=== PATIENT | male | born 1960 | race Caucasian/White ===

== ENCOUNTER 2017-10-03 08:26 | Emergency (ER) | payer OTHER ==
[~2017-10-03] VITALS: Ht 175.3 cm; Wt 81.6 kg
[2017-10-03 09:21] LABS: BASOPHILS # (AUTO) 0.1 (0.0-0.1); BASOPHILS % 1.2 % (0.0-1.0); EOSINOPHILS # (AUTO) 0.3 (0.0-0.4); EOSINOPHILS % 3.6 % (0.0-6.0); HEMATOCRIT 43.9 % (38.2-49.6); HEMOGLOBIN 14.9 g/dL (14.0-18.0); LYMPHOCYTES # (AUTO) 2.5 (1.0-3.2); LYMPHOCYTES % 28.7 % (18.0-39.1); MEAN CORPUSCULAR HEMOGLOBIN 29.9 pg (28-32); MEAN CORPUSCULAR HGB CONC 33.9 g/dL (31-35); MEAN CORPUSCULAR VOLUME 88.2 fL (81-99); MONOCYTES # (AUTO) 0.8 (0.2-0.8); MONOCYTES % 9.2 % (4.4-11.3); NEUTROPHILS # (AUTO) 4.9 (2.1-6.9); NEUTROPHILS % 57.2 % (38.7-80.0); PLATELET COUNT 229 x10e3/uL (140-360); RED BLOOD COUNT 4.98 x10e6/uL (4.3-5.7); RED CELL DISTRIBUTION WIDTH 13.3 % (11.7-14.4)
[2017-10-03 09:31] LABS: ANION GAP 11.1 mmol/L (8-16); BLOOD UREA NITROGEN 13 mg/dL (7-26); BUN/CREATININE RATIO 13 (6-25); CARBON DIOXIDE 29 mmol/L (22-29); CHLORIDE 102 mmol/L (98-107); CREATININE, SERUM 0.98 mg/dL (0.72-1.25); EST GLOMERULAR FILTRATION RATE > 60 ML/MIN (60-); GLUCOSE 98 mg/dL (74-118); POTASSIUM 4.1 mmol/L (3.5-5.1); SODIUM 138 mmol/L (136-145)
--- NOTE | 2017-10-03 09:57 | Diagnostic Imaging Report ---
Toes right CPT code: 38767 Indication: 2 weeks of swelling/redness of the great toe. Technique: Three views of the first toe obtained without comparison. Findings: Soft tissue erosion at the medial aspect of the toe at the base of the proximal phalanx. There is no evidence of fracture, dislocation, focal demineralization or periosteal new bone formation. No focal osseous lesions of the great toe. There are mild degenerative changes of the first MTP. Remainder of the visualized osseous structures are unremarkable. No radiopaque foreign body in the soft tissues. IMPRESSION: No radiographic evidence of osteomyelitis. Bone scan and MRI are more sensitive modalities to detect osteomyelitis. Signed by: Dr. Cody Blake MD on 10/03/2017 9:53 AM
== END 2017-10-03 10:30 | disposition home or self-care (01) ==
LOC: ER 08:26
DX: M79.674 Pain in right toe(s) (principal); L03.031 Cellulitis of right toe; I10 Essential (primary) hypertension; F17.210 Nicotine dependence, cigarettes, uncomplicated
CPT/HCPCS: 36415; 80048; 85025; 99283

== ENCOUNTER 2020-05-02 11:46 | Emergency (ER) | payer OTHER ==
[~2020-05-02] VITALS: Ht 175.3 cm; Wt 83.9 kg
--- OUTSIDE RECORDS SUMMARY | 2020-05-02 11:56 | XMS REPORT | Continuity of Care Document ---
Author Author [facility] t Organization [facility] Address [address] [place] [address] Phone Unavailable Care Team Providers Care Tire Bagger Name Role Phone WERO LOW, Irish BRYANT PCP Nahomi WINSTON Attphyoxana Unavailable Problems This patient has no known problems. Allergies, Adverse Reactions, Alerts This patient has no known allergies or adverse reactions. Social History Social Habit Start Date Stop Date Quantity Comments Source History SDOH Alcohol Std Drinks [facility] History SDOH Alcohol Binge [facility] Sex Assigned At [facility] Tobacco use and exposure 2018-07-10 00:00:00 2018-07-10 00:00:00 Neve r used [facility] Alcohol intake 2018-07-10 00:00:00 2018-07-10 00:00:00 Current non-drinker of alcohol (finding) [facility] History SDOH Alcohol Frequency 2018-07-10 00:00:00 2018-07-10 00:00:0 0 1 [facility] Smoking Status Start Date Stop Date Source Current every day smoker 2018-07-10 00:00:00 [facility] Medications This patient has no known medications. Immunizations Ordered Immunization Name Filled Immunization Name Date Status Comments Source Tdap 2018-07-10 00:00:00 Completed [place] Procedures This patient has no known procedures. Plan of Care Planned Activity Planned Date Details Comments Source Future Scheduled Test 2020-01-13 00:00:00 INFLUENZA VACCINE [code = INFLUENZA VACCINE] [facility] Future Scheduled Test 2011-09-23 00:00:00 COLONOSCOPY SCREEN ING [code = COLONOSCOPY SCREENING] [facility] Future Scheduled Test 2011-09-23 00:00:00 SHINGLES VACCINES (#1) [code = SHINGLES VACCINES (#1)] [facility]ega Encounters Start Date/Time End Date[facility] ID Source 2017-10-03 08:26:00 2017-10-03 10:30:00 Departed Emergency Room ER JULIO WINSTON [facility] [id number] [facility] Results Test Description Test Time Test Comments Results Result Comments Source Sodium Level 2017-10-03 09:33:00 Test Item Sodium Level (test code = 2951-2) 138 136-145 [facility]Pot[facility] [id number] 09:33:00* Test Item Value Reference Range Interpretation Comments Potassium Level (test code = 2823-3) 4.1 3.5-5.1 [facility] HospitalChloride [id number] 09:33:00* Test Item Value Reference Range Interpretation Comments Chloride Level (test code = 2075-0) 102 98-107 [facility] HospitalCarbon Dioxide [id number] 09:33:00* Test Item Value Reference Range Interpretation Comments Carbon Dioxide Level (test code = 2028-9) 29 22-29 [facility] HospitalAnion [id number] 09:33:00* Test Item Value Reference Range Interpretation Comments Anion Gap (test code = 36646-2) 11.1 8-16 [facility] HospitalBlood Urea [id number] 09:33:00* Test Item Value Reference Range Interpretation Comments Blood Urea Nitrogen (test code = 3094-0) 13 7- [facility] HospitalCreatinine2018-04-22 09:33:00* Test Item Value Reference Range Interpretation Comments Creatinine (test code = 2160-0) 0.98 0.72-1.25 [facility] HospitalBUN/Creatinine Mompl2683-13-99 09:33:00* Test Item Value Reference Range Interpretation Comments BUN/Creatinine Ratio (test code = 3097-3) 13 6- [facility] HospitalEstimat Glomerular Filtration Rate 2017-10-03 09:33:00* Test Item Value Reference Range Interpretation Comments Estimat Glomerular Filtration Rate (test code = 12339-5) 60- >60 Ranges were taken from the National Kidney Disease Education Program and the [facility] [employer] literature.Reference ranges:60 or greater: Fpkbca80-32 ( for 3 consecutive months): Chronic kidney disease 15 or less: Kidney failureTexas Health [facility] Memorial HospitalGlucose Fzbjm5430-78-22 09:33:00* Test Item Value Reference Range Interpretation Comments Glucose Level (test code = VVM9085) 98 74-118 [facility] HospitalCalcium Tmyzm9375-34-91 09:33:00* Test Item Value Reference Range Interpretation Comments Calcium Level (test code = 67347-5) 10.0 8.4-10.2 [facility] HospitalWhite Blood [id number] 09:22:00* Test Item Value Reference Range Interpretation Comments White Blood Count (test code = 6690-2) 8.57 4.8-10.8 [facility] HospitalRed Blood [id number] 09:22:00* Test Item Value Reference Range Interpretation Comments Red Blood Count (test code = 789-8) 4.98 4.3-5.7 [facility] HospitalHemoglobin2018-04-22 09:22:00* Test Item Value Reference Range Interpretation Comments Hemoglobin (test code = 49227-2) 14.9 14.0-18.0 [facility] HospitalHematocrit2018-04-22 09:22:00* Test Item Value Reference Range Interpretation Comments Hematocrit (test code = 4544-3) 43.9 38.2-49.6 [facility] HospitalMean Corpuscular Kvpmmt6429-54-05 09:22:00* Test Item Value Reference Range Interpretation Comments Mean Corpuscular Volume (test code = 787-2) 88.2 81-99 [facility] HospitalMean Corpuscular Hddiqfqier3051-33-34 09:22:00* Test Item Value Reference Range Interpretation Comments Mean Corpuscular Hemoglobin (test code = 785-6) 29.9 28-32 [facility] HospitalMean Corpuscular Hemoglobin Concent 2017-10-03 09:22:00* Test Item Value Reference Range Interpretation Comments Mean Corpuscular Hemoglobin Concent (test code = 786-4) 33.9 31-35 [facility] HospitalRed Cell Distribution [id number] 09:22:00* Test Item Value Reference Range Interpretation Comments Red Cell Distribution Width (test code = 08024-2) 13.3 11.7 -14.4 [facility] HospitalPlatelet [id number] 09:22:00* Test Item Value Reference Range Interpretation Comments Platelet Count (test code = 777-3) 229 140-360 [facility] HospitalNeutrophils (%) (Auto)2017-10-03 09:22:00 * Test Item Value Reference Range Interpretation Comments Neutrophils (%) (Auto) (test code = 34747-5) 57.2 38.7-80.0 [facility] HospitalLymphocytes (%) (Auto)2017-10-03 09:22:00 * Test Item Value Reference Range Interpretation Comments Lymphocytes (%) (Auto) (test code = 736-9) 28.7 18.0-39.1 [facility] HospitalMonocytes (%) (Auto)2017-10-03 09:22:00* Test Item Value Reference Range Interpretation Comments Monocytes (%) (Auto) (test code = 5905-5) 9.2 4.4-11.3 [facility] HospitalEosinophils (%) (Auto)2017-10-03 09:22:00 * Test Item Value Reference Range Interpretation Comments Eosinophils (%) (Auto) (test code = 713-8) 3.6 0.0-6.0 [facility] HospitalBasophils (%) (Auto)2017-10-03 09:22:00* Test Item Value Reference Range Interpretation Comments Basophils (%) (Auto) (test code = 706-2) 1.2 0.0-1.0 H [facility] HospitalIM GRANULOCYTES %2017-10-03 09:22:00* Test Item Value Reference Range Interpretation Comments IM GRANULOCYTES % (test code = IM GRANULOCYTES %) 0.1 0.0- 1.0 [facility] HospitalNeutrophils # (Auto)2017-10-03 09:22:00* Test Item Value Reference Range Interpretation Comments Neutrophils # (Auto) (test code = 751-8) 4.9 2.1-6.9 [facility] HospitalLymphocytes # (Auto)2017-10-03 09:22:00* Test Item Value Reference Range Interpretation Comments Lymphocytes # (Auto) (test code = 18825-2) 2.5 1.0-3.2 [facility] HospitalMonocytes # (Auto)2017-10-03 09:22:00* Test Item Value Reference Range Interpretation Comments Monocytes # (Auto) (test code = 742-7) 0.8 0.2-0.8 [facility] HospitalEosinophils # (Auto)2017-10-03 09:22:00* Test Item Value Reference Range Interpretation Comments Eosinophils # (Auto) (test code = 711-2) 0.3 0.0-0.4 [facility] HospitalBasophils # (Auto)2017-10-03 09:22:00* Test Item Value Reference Range Interpretation Comments Basophils # (Auto) (test code = 704-7) 0.1 0.0-0.1 [facility] HospitalAbsolute Immature Granulocyte (auto 2017-10-03 09:22:00* Test Item Value Reference Range Interpretation Comments Absolute Immature Granulocyte (auto (nazario t code = Absolute Immature Granulocyte (auto) 0.01 0-0.1 [facility] HospitalTOES RIGHT MIN [address] [facility] [address] [address] Patient Name: CHARIS ENGEL MR #: [id number] : 1960 Age/Sex: 57/M Req #: [id number] Adm Physician: Ordered by: JULIO WINSTON MD Report #: [id number] Location: ER Room/Bed: Procedure: [id number] DX/TOES RIGHT MIN 2 VIEWS Ex am Date: 10/03/17 Exam Time: 934 REPORT STATUS : Signed Toes right CPT code: 23356 Indication: 2 weeks of swelling /redness of the great toe. Technique: Three views of the first toe obtained without comparison. Findings: Soft tissue erosion at the medial aspect of the toe at the base of the proximal phalanx. There is no evidence of frac ture, dislocation, focal demineralization or periosteal new bone formation. No focal osseous lesions of the great toe. There are mild degenerative changes of the first MTP. Remainder of the visualized osseous structures are unremar kable. No radiopaque foreign body in the soft tissues. IMPRESSION: No radiographic evidence of osteomyelitis. Bone scan and MRI are more sensitive modalities to detect osteomyelitis. Signed by: Dr. Laurel Blake MD on 10/03/2017 9:53 AM Dictated By: LAUREL BLAKE MD 2 Transcribed By: JOEL on 952 COPY TO: JULIO WINSTON MD
--- OUTSIDE RECORDS SUMMARY | 2020-05-02 11:56 | XMS REPORT | Clinical Summary ---
Author Author [facility] Address Unknown Phone Unavailable Care Team Providers Care Expediter Service Order Name Role Phone Asked, No Pcp PCP Unavailable Allergies No Known Active Allergies Medications No known medications Active Problems Not on file Immunizations Name Administration Dates Next Due Tdap 07/10/2018 Social History Date Tobacco Use Types Packs/Day Years Used Current Every Day Smoker Smokeless Tobacco: Never Used Drinks/Week oz/Week Comments Alcohol Use No Alcohol Habits Answer Date Recorded How often do you have a drink containing alcohol? Never 07/10/2018 How many drinks containing alcohol do you have on No t asked a typical day when you are drinking? How often do you have six or more drinks on one Not asked occasion? Sex Assigned at Date Recorded Not on file Last Filed Vital Signs Not on file Plan of Treatment Health Maintenance Due Date Last Done Comments COLONOSCOPY SCREENING 09/23/2011 SHINGLES VACCINES (#1) 09/23/2011 INFLUENZA VACCINE 01/13/2020 Results Not on fileafter 05/02/2019 Insurance Type Payer Benefit Subscriber ID Effective Phone Address Plan / Dates Group Exchange NICHOLAS EXCHANGE NICHOLAS [id number] [employer] resent E EXCHANGE Advance Directives For more information, please contact: [phone] Patient Surveillance Operator Explanation Type Date Recorded Advance Directives, 07/10/2018 11:37 PM Living Will and Medical Power of Rug Repairer
--- NOTE | 2020-05-02 12:13 | Emergency Department Note ---
History of Present Illnes History of Present Illness Chief Complaint: COVID PUI History of Present Illness This is a 59 year old male Chief Complaint Comment pt sent here from [facility] for eval. has c/o sob and cough for one week. reports he was tested for covid today and was negative. Stock Repairer Required: No Onset (how long ago): day(s) (5) Location: Chest Quality: cough Radiation: Reports non-radiation Severity: mild Onset quality: gradual Duration (how long): day(s) (5) Timing of current episode: constant Progression: unchanged Chronicity: new Context: Denies recent illness, Denies recent surgery Relieving factors: none Exacerbating factors: none Associated symptoms: Reports denies other symptoms Treatments prior to arrival: none Past Medical/Family History Physician Review I have reviewed the patient's past medical and family history. Any updates have been documented here. Past Medical History Past Medical History: Hypertension Past Surgical History: None Other Last Tetanus: UNK Review of Systems Review of Systems Constitutional: Reports no symptoms EENTM: Reports no symptoms Cardiovascular: Reports no symptoms Respiratory: Reports as per HPI, Reports cough Gastrointestinal: Reports no symptoms Genitourinary: Reports no symptoms Musculoskeletal: Reports no symptoms Integumentary: Reports no symptoms Neurological: Reports no symptoms Psychological: Reports no symptoms Endocrine: Reports no symptoms Hematological/Lymphatic: Reports no symptoms Physical Exam Related Data Allergies: Coded Allergies: No Known Allergies (Unverified , 10/03/17) Triage Vital Signs Vital Signs Date Time Temp Pulse Resp B/P (MAP) Pulse Ox O2 Delivery O2 Flow Rate FiO2 05/02/20 11:50 98.5 84 18 160/101 95 Vital signs reviewed: Yes Physical Exam CONSTITUTIONAL Constitutional: Present well-developed, Present well-nourished HENT HENT: Present normocephalic, Present atraumatic, Present oropharynx clear/moist, Present nose normal HENT L/R: Present left ext ear normal, Present right ext ear normal EYES Eyes: Reports PERRL, Reports conjunctivae normal NECK Neck: Present ROM normal PULMONARY Pulmonary: Present effort normal, Present breath sounds normal, Present other (Mild wheezes) CARDIOVASCULAR Cardiovascular: Present regular rhythm, Present heart sounds normal, Present capillary refill normal, Present normal rate GASTROINTESTINAL Abdominal: Present soft, Present nontender, Present bowel sounds normal GENITOURINARY Genitourinary: Present exam deferred SKIN Skin: Present warm, Present dry MUSCULOSKELETAL Musculoskeletal: Present ROM normal NEUROLOGICAL Neurological: Present alert, Present oriented x 3, Present no gross motor or sensory deficits PSYCHOLOGICAL Psychological: Present mood/affect normal, Present judgement normal Results Laboratory Lab results reviewed: Yes Imaging Imaging results reviewed: Yes Diagnostics Tests Diagnostic test(s) reviewed: Yes Procedures 12 Lead ECG Interpretation ECG Interpretation : Stock Repairer: Interpreted by ED physician Date: May 02, 2020 Rhythm: sinus rhythm Rate: normal QRS axis: normal Conduction: incomplete RBBB ST segments normal: Yes T waves normal: Yes Clinical Impression: non-specific ECG Assessment & Plan Medical Decision Making MDM 59-year-old male presents to the emergency department for cough 5 days. He denies any past medical history otherwise feels at his baseline health. He is seen at another emergency department and was noted to have an oxygen saturation 91% and told to come to the emergency department at [facility]. Denies chest pain, risk factors for pulmonary embolism, leg swelling or any other concerns. W/u shows no PNA. Wheezes on exam suggest obstructive lung disease. Hx smoking favor COPD. Breathing improved with albuterol. Will DC home wiht albuterol and Dr. Rocha referral. Appropriate for DC. Reassessment Reassessment time: 12:13 Reassessment Well appearing, NAD Assessment & Plan Final Impression: (1) Dyspnea Depart Disposition: HOME, SELF-CARE Last Vital Signs Date Time Temp Pulse Resp B/P (MAP) Pulse Ox O2 Delivery O2 Flow Rate FiO2 05/02/20 11:50 98.5 84 18 160/101 95 DIGNA MOSLEY MD May 02, 2020 12:13
[2020-05-02] MEDS ORDERED: ALBUTEROL SULFATE HFA 8GM INHALATION AEROSOL INH PRN (12:15)
--- NOTE | 2020-05-02 12:17 | Diagnostic Imaging Report ---
TECHNIQUE: Frontal view of the chest. INDICATION: ^Y ^SoB, cough ^[id number] ^1200 COMPARISON: None DISCUSSION: Limited evaluation due to portable technique. Lines and hardware: None Heart and mediastinum: Stable. Lungs and pleura: A few linear opacities at the right lung base are probably related to atelectasis. No lobar consolidation, effusion or pneumothorax. Soft tissues and bones: No acute abnormality. IMPRESSION: Probable right basilar atelectasis. Negative for focal consolidation. Signed by: Jae Decker MD on 05/02/2020 12:13 PM
[2020-05-02 12:41] LABS: BASOPHILS # (AUTO) 0.1 (0.0-0.1); BASOPHILS % 1.5 % (0.0-1.0); EOSINOPHILS # (AUTO) 0.6 (0.0-0.4); EOSINOPHILS % 6.1 % (0.0-6.0); HEMATOCRIT 47.7 % (38.2-49.6); HEMOGLOBIN 15.8 g/dL (14.0-18.0); LYMPHOCYTES % 20.5 % (18.0-39.1); MEAN CORPUSCULAR HEMOGLOBIN 29.9 pg (28-32); MEAN CORPUSCULAR HGB CONC 33.1 g/dL (31-35); MEAN CORPUSCULAR VOLUME 90.2 fL (81-99); MONOCYTES # (AUTO) 0.9 (0.2-0.8); NEUTROPHILS % 62.6 % (38.7-80.0); PLATELET COUNT 272 x10e3/uL (140-360); RED BLOOD COUNT 5.29 x10e6/uL (4.3-5.7); RED CELL DISTRIBUTION WIDTH 12.6 % (11.7-14.4)
[2020-05-02 12:49] LABS: ALANINE AMINOTRANSFERASE 21 IU/L (0-55); ALBUMIN 4.1 g/dL (3.5-5.0); ALBUMIN/GLOBULIN RATIO 1.1 (0.8-2.0); ALKALINE PHOSPHATASE 56 IU/L (40-150); ANION GAP 11.4 mmol/L (8-16); BLOOD UREA NITROGEN 13 mg/dL (7-26); BUN/CREATININE RATIO 11 (6-25); CALCIUM 9.5 mg/dL (8.4-10.2); CARBON DIOXIDE 31 mmol/L (22-29); CHLORIDE 100 mmol/L (98-107); CREATININE, SERUM 1.15 mg/dL (0.72-1.25); EST GLOMERULAR FILTRATION RATE > 60 ML/MIN (60-); GLUCOSE 101 mg/dL (74-118); POTASSIUM 4.4 mmol/L (3.5-5.1); SODIUM 138 mmol/L (136-145)
[2020-05-02] MEDS ORDERED: DEXAMETHASONE 4 MG TAB PO STA (12:54)
== END 2020-05-02 14:45 | disposition home or self-care (01) ==
LOC: ER 11:53
DX: R06.00 Dyspnea, unspecified (principal); R05 Cough
CPT/HCPCS: 36415; 71045; 80053; 85025; 87400; 93005; 99284; J8540

== ENCOUNTER 2020-08-09 10:39 | Inpatient (IN) | payer OTHER ==
[~2020-08-09] VITALS: Ht 175.3 cm; Wt 83.9 kg
[2020-08-09] MEDS ORDERED: ASPIRIN 81 MG CHEW TAB PO ONE (11:15)
[2020-08-09 11:23] LABS: BASOPHILS # (AUTO) 0.2 (0.0-0.1); BASOPHILS % 1.3 % (0.0-1.0); EOSINOPHILS # (AUTO) 0.9 (0.0-0.4); EOSINOPHILS % 7.5 % (0.0-6.0); HEMATOCRIT 48.1 % (38.2-49.6); HEMOGLOBIN 15.7 g/dL (14.0-18.0); LYMPHOCYTES % 17.1 % (18.0-39.1); MEAN CORPUSCULAR HEMOGLOBIN 29.7 pg (28-32); MEAN CORPUSCULAR HGB CONC 32.6 g/dL (31-35); MEAN CORPUSCULAR VOLUME 91.1 fL (81-99); MONOCYTES # (AUTO) 0.9 (0.2-0.8); MONOCYTES % 7.6 % (4.4-11.3); NEUTROPHILS # (AUTO) 7.8 (2.1-6.9); NEUTROPHILS % 66.2 % (38.7-80.0); PLATELET COUNT 286 x10e3/uL (140-360); RED BLOOD COUNT 5.28 x10e6/uL (4.3-5.7); RED CELL DISTRIBUTION WIDTH 12.6 % (11.7-14.4)
[2020-08-09 11:35] LABS: ALANINE AMINOTRANSFERASE 17 IU/L (0-55); ALBUMIN 4.2 g/dL (3.5-5.0); ALBUMIN/GLOBULIN RATIO 1.2 (0.8-2.0); ALKALINE PHOSPHATASE 58 IU/L (40-150); ANION GAP 13.3 mmol/L (8-16); BLOOD UREA NITROGEN 9 mg/dL (7-26); BUN/CREATININE RATIO 9 (6-25); CALCIUM 9.5 mg/dL (8.4-10.2); CARBON DIOXIDE 28 mmol/L (22-29); CHLORIDE 101 mmol/L (98-107); CREATINE KINASE 149 IU/L (30-200); CREATININE, SERUM 1.01 mg/dL (0.72-1.25); EST GLOMERULAR FILTRATION RATE > 60 ML/MIN (60-); GLUCOSE 109 mg/dL (74-118); POTASSIUM 4.3 mmol/L (3.5-5.1); SODIUM 138 mmol/L (136-145)
[2020-08-09] MEDS ORDERED: SODIUM CHLORIDE 0.9% 50ML 50 ML ONE (13:47)
[2020-08-09] MEDS ORDERED: IOPAMIDOL 370 MG/ML 200 ML INFUS..BTL INJ ONE (13:47)
[2020-08-09] MEDS ORDERED: ALBUTEROL/IPRATROPIUM 3 ML NEB NEB ONE (15:30)
[2020-08-09] MEDS ORDERED: METHYLPREDNISOLONE SOD SUCC 125 MG/2ML VIAL IV ONE (15:30)
[2020-08-09] MEDS ORDERED: ONDANSETRON HCL INJ 2MG/ML 2ML 2 MG/ML VIAL IV PRN (17:15)
[2020-08-09] MEDS ORDERED: ACETAMINOPHEN 325 MG TAB PO PRN (17:15)
[2020-08-09] MEDS: ENOXAPARIN SOD INJ 40 MG/0.4 ML SYR SC SCH (18:00)
[2020-08-09] MEDS ORDERED: SODIUM CHLORIDE 0.9% 250ML 250 ML ONE (19:27)
[2020-08-09] MEDS: AZITHROMYCIN 500MG/NS 250 ML 250 ML IV SCH (19:28)
[2020-08-09 19:30] VITALS: BP 114/72
[2020-08-09] MEDS ORDERED: PANTOPRAZOLE SO20 MG PO (19:59)
[2020-08-09 20:39] VITALS: BP 121/72
[2020-08-09 21:03] VITALS: BP 121/72
[2020-08-09] MEDS: GUAIFENESIN 200 MG/10 ML UDC PO PRN (21:15)
[2020-08-09] MEDS: METHYLPREDNISOLONE SOD SUCC 125 MG/2ML VIAL IV SCH (21:48)
[2020-08-09] MEDS: IPRATROPIUM BROMIDE 0.02% 2.5 ML NEB NEB SCH (22:07)
[2020-08-10] VITALS (8 sets, daily range): BP systolic 119–139; BP diastolic 60–82
[2020-08-10] MEDS: ALBUTEROL SULF 0.083% NEB SOLN 3 ML NEB NEB PRN ×2 (00:05→19:43)
[2020-08-10] MEDS: IPRATROPIUM BROMIDE 0.02% 2.5 ML NEB NEB SCH ×4 (00:05→19:42)
[2020-08-10 04:47] LABS: CLARITY,URINE CLEAR (CLEAR); COLOR,URINE YELLOW (YELLOW); KETONES,URINE TRACE (NEGATIVE); LEUKOCYTE ESTERASE ,URINE NEGATIVE (NEGATIVE); NITRITE,URINE NEGATIVE (NEGATIVE); PROTEIN,URINE DIPSTICK NEGATIVE (NEGATIVE); URINE UROBILINOGEN 0.2 mg/dL (0.2 - 1)
[2020-08-10 04:49] LABS: BACTERIA,URINE RARE /HPF; EPITHELIAL CELLS,URINE RARE /LPF; RBC,URINE 0-5 /HPF (0-5); WBC,URINE (MAN) 0-5 /HPF (0-5)
[2020-08-10] MEDS: METHYLPREDNISOLONE SOD SUCC 125 MG/2ML VIAL IV SCH ×3 (05:38→22:40)
[2020-08-10 06:30] LABS: BASOPHILS % 0.1 % (0.0-1.0); EOSINOPHILS % 0.1 % (0.0-6.0); HEMATOCRIT 44.1 % (38.2-49.6); HEMOGLOBIN 14.4 g/dL (14.0-18.0); LYMPHOCYTES # (AUTO) 0.6 (1.0-3.2); LYMPHOCYTES % 9.1 % (18.0-39.1); MEAN CORPUSCULAR HEMOGLOBIN 29.6 pg (28-32); MEAN CORPUSCULAR HGB CONC 32.7 g/dL (31-35); MEAN CORPUSCULAR VOLUME 90.7 fL (81-99); MONOCYTES # (AUTO) 0.1 (0.2-0.8); MONOCYTES % 1.8 % (4.4-11.3); NEUTROPHILS % 88.5 % (38.7-80.0); PLATELET COUNT 261 x10e3/uL (140-360); RED BLOOD COUNT 4.86 x10e6/uL (4.3-5.7); RED CELL DISTRIBUTION WIDTH 12.2 % (11.7-14.4)
[2020-08-10 06:48] LABS: ALANINE AMINOTRANSFERASE 17 IU/L (0-55); ALBUMIN 3.6 g/dL (3.5-5.0); ALBUMIN/GLOBULIN RATIO 1.1 (0.8-2.0); ALKALINE PHOSPHATASE 56 IU/L (40-150); ANION GAP 12.8 mmol/L (8-16); BLOOD UREA NITROGEN 13 mg/dL (7-26); BUN/CREATININE RATIO 15 (6-25); CARBON DIOXIDE 25 mmol/L (22-29); CHLORIDE 102 mmol/L (98-107); CREATININE, SERUM 0.86 mg/dL (0.72-1.25); EST GLOMERULAR FILTRATION RATE > 60 ML/MIN (60-); GLUCOSE 220 mg/dL (74-118); POTASSIUM 3.8 mmol/L (3.5-5.1); SODIUM 136 mmol/L (136-145)
[2020-08-10 07:00] LABS: HIV 1&2 AB SCREEN NON-REACTIVE (NONREACTIVE)
[2020-08-10] MEDS: GUAIFENESIN 200 MG/10 ML UDC PO PRN ×3 (09:11→22:40)
[2020-08-10] MEDS: MAGNESIUM/ALUMINUM/SIMETHICONE 30 ML UDC PO PRN ×2 (09:20→18:33)
[2020-08-10] MEDS ORDERED: PREDNISONE20 MG PO (14:54)
[2020-08-10] MEDS ORDERED: ZITHROMAX250 MG PO (14:54)
[2020-08-10] MEDS ORDERED: PROAIR HFA INH8.5 GM INH (14:54)
[2020-08-10] MEDS ORDERED: DULERA 100 MCG/13 GM PO (14:54)
[2020-08-10] MEDS: ENOXAPARIN SOD INJ 40 MG/0.4 ML SYR SC SCH (15:57)
[2020-08-10] MEDS: AZITHROMYCIN 500MG/NS 250 ML 250 ML IV SCH (17:00)
[2020-08-11] VITALS: BP 118/63
[2020-08-11] MEDS: IPRATROPIUM BROMIDE 0.02% 2.5 ML NEB NEB SCH ×3 (02:57→13:04)
[2020-08-11 04:00] VITALS: BP 117/67
[2020-08-11] MEDS: METHYLPREDNISOLONE SOD SUCC 125 MG/2ML VIAL IV SCH (06:03)
[2020-08-11 08:01] VITALS: BP 115/65
[2020-08-11 08:33] VITALS: BP 115/65
[2020-08-11 11:55] VITALS: BP 130/67
[2020-08-12 17:31] LABS: ALPHA-1-ANTITRYPSIN 94 mg/dL (101-187)
== END 2020-08-11 15:46 | disposition home or self-care (01) | DRG 190 ==
LOC: ER 10:46 → ERHOLD 14:49 → MED/SURG3 18:05
PROVIDERS: ADMIT Internal Medicine; ATTEND Internal Medicine
DX: J44.1 Chronic obstructive pulmonary disease with (acute) exacerbation (principal); J96.01 Acute respiratory failure with hypoxia; J82.89 Other pulmonary eosinophilia, not elsewhere classified; Z20.822 Contact with and (suspected) exposure to COVID-19; K21.9 Gastro-esophageal reflux disease without esophagitis; Z87.891 Personal history of nicotine dependence
CPT/HCPCS: 36415; 71045; 71260; 80053; 81001; 82103; 82550; 82553; 82785; 84484; 85025; 85379; 85651; 86021; 86039; 86431; 87390; 93005; 94640; 99284; G0433; G0435; J0456; J1650; J2930; J7050; Q9967; U0002

== ENCOUNTER → 2020-09-03 | Outpatient (CLI) | payer OTHER ==
[~2020-09-03] MED LIST: COVID-19 VACC, MRNA(MODERNA)/PF 100 MCG/0.5 ML VIAL IM ONE; DULERA 100 MCG/13 GM PO; PANTOPRAZOLE SO20 MG PO; PREDNISONE20 MG PO; PROAIR HFA INH8.5 GM INH; ZITHROMAX250 MG PO
== END ==
LOC: VACCPMC 08:00
DX: Z23 Encounter for immunization (principal); Z20.822 Contact with and (suspected) exposure to COVID-19
CPT/HCPCS: 91301

== ENCOUNTER → 2020-10-01 | Outpatient (CLI) | payer OTHER | END | disposition home or self-care (01) | LOC: VACCPMC 09-30 09:27 | DX: Z23 Encounter for immunization (principal); Z20.822 Contact with and (suspected) exposure to COVID-19 | CPT/HCPCS: 91301 ==

== ENCOUNTER 2020-10-19 23:56 | Observation (INO) | payer OTHER ==
[~2020-10-19] VITALS: Ht 175.3 cm; Wt 83.9 kg
[~2020-10-19 23:56] MED LIST changes: -COVID-19 VACC, MRNA(MODERNA)/PF 100 MCG/0.5 ML VIAL IM ONE
[2020-10-20] VITALS (9 sets, daily range): BP systolic 113–131; BP diastolic 59–74
[2020-10-20 00:28] LABS: BASOPHILS # (AUTO) 0.2 (0.0-0.1); BASOPHILS % 1.2 % (0.0-1.0); EOSINOPHILS # (AUTO) 1.1 (0.0-0.4); HEMATOCRIT 43.9 % (38.2-49.6); HEMOGLOBIN 13.9 g/dL (14.0-18.0); LYMPHOCYTES # (AUTO) 3.9 (1.0-3.2); LYMPHOCYTES % 24.1 % (18.0-39.1); MEAN CORPUSCULAR HEMOGLOBIN 29.7 pg (28-32); MEAN CORPUSCULAR HGB CONC 31.7 g/dL (31-35); MEAN CORPUSCULAR VOLUME 93.8 fL (81-99); MONOCYTES # (AUTO) 1.3 (0.2-0.8); NEUTROPHILS # (AUTO) 9.6 (2.1-6.9); NEUTROPHILS % 59.4 % (38.7-80.0); PLATELET COUNT 295 x10e3/uL (140-360); RED BLOOD COUNT 4.68 x10e6/uL (4.3-5.7); RED CELL DISTRIBUTION WIDTH 12.7 % (11.7-14.4)
[2020-10-20 00:50] LABS: ALANINE AMINOTRANSFERASE 17 IU/L (0-55); ALBUMIN 3.8 g/dL (3.5-5.0); ALBUMIN/GLOBULIN RATIO 1.1 (0.8-2.0); ALKALINE PHOSPHATASE 62 IU/L (40-150); ANION GAP 12.7 mmol/L (8-16); BLOOD UREA NITROGEN 11 mg/dL (7-26); BUN/CREATININE RATIO 11 (6-25); CALCIUM 8.8 mg/dL (8.4-10.2); CARBON DIOXIDE 31 mmol/L (22-29); CHLORIDE 102 mmol/L (98-107); CREATINE KINASE 215 IU/L (30-200); CREATININE, SERUM 1.01 mg/dL (0.72-1.25); EST GLOMERULAR FILTRATION RATE > 60 ML/MIN (60-); GLUCOSE 101 mg/dL (74-118); POTASSIUM 3.7 mmol/L (3.5-5.1); SODIUM 142 mmol/L (136-145)
[2020-10-20] MEDS ORDERED: SODIUM CHLORIDE FLUSH 10 ML SYR INJ PRN (01:30)
[2020-10-20] MEDS: ALBUTEROL/IPRATROPIUM 3 ML NEB NEB SCH ×6 (04:35→22:30)
[2020-10-20] MEDS: METHYLPREDNISOLONE SOD SUCC 40 MG/ML VIAL 1ML IV SCH ×3 (05:02→18:19)
[2020-10-20 10:31] LABS: CREATINE KINASE MB 2.9 ng/mL (0-5.0)
[2020-10-20] MEDS ORDERED: AZITHROMYCIN 500MG/NS 250 ML 250 ML IV SCH (15:30)
[2020-10-20] MEDS ORDERED: GUAIFENESIN 200 MG/10 ML UDC PO PRN (15:30)
[2020-10-20] MEDS ORDERED: ZITHROMAX250 MG PO (15:43)
[2020-10-20] MEDS ORDERED: PANTOPRAZOLE SO20 MG PO (15:43)
[2020-10-20] MEDS ORDERED: PREDNISONE20 MG PO (15:43)
[2020-10-20] MEDS ORDERED: SODIUM CHLORIDE 0.9% 250ML 250 ML ONE (16:08)
[2020-10-20 19:27] LABS: CREATINE KINASE MB 2.6 ng/mL (0-5.0)
[2020-10-21 00:25] VITALS: BP 134/62
[2020-10-21] MEDS: METHYLPREDNISOLONE SOD SUCC 40 MG/ML VIAL 1ML IV SCH ×3 (00:29→12:20)
[2020-10-21] MEDS: ALBUTEROL/IPRATROPIUM 3 ML NEB NEB SCH ×3 (02:50→10:20)
[2020-10-21 04:15] VITALS: BP 120/64
[2020-10-21 05:40] LABS: BASOPHILS % 0.1 % (0.0-1.0); HEMOGLOBIN 13.8 g/dL (14.0-18.0); LYMPHOCYTES # (AUTO) 0.9 (1.0-3.2); LYMPHOCYTES % 5.2 % (18.0-39.1); MEAN CORPUSCULAR HEMOGLOBIN 29.6 pg (28-32); MEAN CORPUSCULAR HGB CONC 32.9 g/dL (31-35); MEAN CORPUSCULAR VOLUME 89.9 fL (81-99); MONOCYTES # (AUTO) 0.7 (0.2-0.8); MONOCYTES % 4.1 % (4.4-11.3); NEUTROPHILS # (AUTO) 14.8 (2.1-6.9); NEUTROPHILS % 90.1 % (38.7-80.0); PLATELET COUNT 284 x10e3/uL (140-360); RED BLOOD COUNT 4.67 x10e6/uL (4.3-5.7)
[2020-10-21 06:04] LABS: ANION GAP 14.2 mmol/L (8-16); BLOOD UREA NITROGEN 14 mg/dL (7-26); BUN/CREATININE RATIO 17 (6-25); CARBON DIOXIDE 26 mmol/L (22-29); CHLORIDE 103 mmol/L (98-107); CREATININE, SERUM 0.81 mg/dL (0.72-1.25); EST GLOMERULAR FILTRATION RATE > 60 ML/MIN (60-); GLUCOSE 167 mg/dL (74-118); POTASSIUM 4.2 mmol/L (3.5-5.1); SODIUM 139 mmol/L (136-145)
[2020-10-21 06:48] LABS: CREATINE KINASE MB 1.7 ng/mL (0-5.0)
[2020-10-21] MEDS ORDERED: PANTOPRAZOLE SOD 40 MG TABEC PO SCH (07:30)
[2020-10-21 08:19] VITALS: BP 119/68
[2020-10-21 08:30] VITALS: BP 119/68
[2020-10-21 12:44] VITALS: BP 123/72
== END 2020-10-21 12:55 | disposition home or self-care (01) ==
LOC: ER 10-20 00:05 → ERHOLD 10-20 01:34 → MED/SURG3 10-20 03:34
PROVIDERS: ADMIT Internal Medicine; ATTEND Internal Medicine
DX: J44.1 Chronic obstructive pulmonary disease with (acute) exacerbation (principal); F17.290 Nicotine dependence, other tobacco product, uncomplicated; T78.49XA Other allergy, initial encounter; Z20.822 Contact with and (suspected) exposure to COVID-19
CPT/HCPCS: 36415 ×2; 71045; 80048; 80053; 82550 ×2; 82553 ×2; 83880; 84484 ×2; 85025 ×2; 93005; 94640 ×3; 99284; G0378 ×2; J0456; J2920 ×2; J7050; S0164; U0002